=== PATIENT | female | born 1980 | race American Indian/Alaskan Native ===

== ENCOUNTER 2017-06-16 16:27 | Emergency (ER) | payer OTHER ==
[2017-06-16 17:37] LABS: Mean Corpuscular HGB Conc 30 % (30-34); Platelet Count 320 K/mm3 (140-440); Red Blood Count 5.39 M/mm3 (3.65-5.03); White Blood Count 5.9 K/mm3 (4.5-11.0)
[2017-06-16 17:44] LABS: Hematocrit 32.9 % (30.3-42.9); Hemoglobin 9.8 gm/dl (10.1-14.3); Mean Corpuscular Hemoglobin 18 pg (28-32); Mean Corpuscular Volume 61 fl (79-97); Red Cell Distribution Width 25.6 % (13.2-15.2)
[2017-06-16 17:46] LABS: INR 1.15 (0.87-1.13); Partial Thromboplastin Time 27.8 Sec. (24.2-36.6)
[2017-06-16 17:53] LABS: Blood Urea Nitrogen 9 mg/dL (7-17); Calcium 9.3 mg/dL (8.4-10.2); Carbon Dioxide 16 mmol/L (22-30); Glucose 100 mg/dL (65-100)
[2017-06-16 17:54] LABS: Anion Gap 26 mmol/L; Chloride 102.9 mmol/L (98-107); Potassium 3.8 mmol/L (3.6-5.0); Sodium 141 mmol/L (137-145)
--- NOTE | 2017-06-16 18:32 | Cat Scan Report ---
FINAL REPORT PROCEDURE: CT HEAD/BRAIN WO CON TECHNIQUE: Computerized tomography of the head was performed without contrast material. HISTORY: neuro deficits \T\lt; 6hrs or sx present upon awakening COMPARISON: No prior studies are available for comparison. FINDINGS: Visualized portions of the paranasal sinuses and mastoid air cells are clear. No calvarial fracture is seen. Cerebral ventricles are normal in size. Idiopathic calcifications are seen in the basal ganglia. No acute intracranial hemorrhage or mass effect is seen. No CVA is seen. IMPRESSION: No significant abnormality is seen.
[2017-06-16 18:33] LABS: Basophils % (Manual) 0 % (0.0-1.8); Blastocytes % (Manual) 0 %
[2017-06-16 18:34] LABS: Anisocytosis 1+; Elliptocytes 1+; Hypochromasia 2+; Tear Drop Cells 1+
[2017-06-16 18:35] LABS: Diff Status Complete; Platelet Estimate Consistent w Auto
[2017-06-16] MEDS ORDERED: CATAPRES PO ONE (20:25)
[2017-06-16] MEDS ORDERED: APRESOLINE PO ONE (21:39)
--- NOTE | 2017-06-16 22:07 | Emergency Department Report ---
HPI - General Chief Complaint: High BP Time Seen by Provider: 06/16/17 20:05 - HPI HPI: 36-year-old -[place] female, with history of labile blood pressure, come to the ED with blood pressure that has been elevated. She states she got into an argument with her supervising yesterday, and has had problem controlling her blood pressure. She is on hydralazine 25 mg by mouth once a day , clonidine 0.1 mg by mouth at night. Denied any chest pain. No nausea no vomiting mild dizziness. ED Past Medical Hx - Past Medical History Hx Hypertension: Yes Hx Congestive Heart Failure: No (Bordering) Hx Diabetes: No Hx Psychiatric Treatment: Yes (bipolar/depression) Hx Asthma: No Hx COPD: No Additional medical history: iron deficency anemia, Uterine fibroids - Surgical History Past Surgical History?: Yes Additional Surgical History: abd sx x3, most recent abd sx 2007, , L tubal , Bowel obstruction - Social History Smoking Status: Former Smoker Substance Use Type: Alcohol - Medications Home Medications: Home Medications Medication Instructions Recorded Confirmed Last Taken Type cloNIDine [Catapres] 0.1 mg PO QHS 10/07/16 06/16/17 06/15/17 History hydrALAZINE [Apresoline TAB] 50 mg PO TID 10/07/16 06/16/17 06/15/17 History traZODone [Desyrel] 200 mg PO QHS 10/07/16 06/16/17 06/15/17 History ED Review of Systems ROS: Stated complaint: HEAD PAIN/DIZZY Other details as noted in HPI Comment: All other systems reviewed and negative Constitutional: no symptoms reported Neurological: other (denies focal weakness, confusion and it) Physical Exam - Physical Exam Vital Signs: Vital Signs 06/16/17 06/16/17 06/16/17 16:34 20:03 20:42 Temperature 98.4 F 98.5 F Pulse Rate 95 H 77 70 Respiratory 16 18 Rate Blood Pressure 164/129 170/114 Blood Pressure 169/106 [Left] O2 Sat by Pulse 99 100 Oximetry 06/16/17 06/16/17 21:36 21:47 Temperature Pulse Rate 71 74 Respiratory 16 Rate Blood Pressure 167/105 Blood Pressure 157/105 [Left] O2 Sat by Pulse 100 Oximetry Physical Exam: Vital signs reviewed. Gen. alert and oriented 3 in no distress Head atraumatic normocephalic Eyes PERR LA EOMI Chest regular rate and rhythm normal S1-S2 lungs clear bilaterally Abdomen soft nondistended Back no point tenderness paravertebral tenderness Neuro no focal deficit. Psych normal mood. ED Course Vital Signs 06/16/17 06/16/17 06/16/17 16:34 20:03 20:42 Temperature 98.4 F 98.5 F Pulse Rate 95 H 77 70 Respiratory 16 18 Rate Blood Pressure 164/129 170/114 Blood Pressure 169/106 [Left] O2 Sat by Pulse 99 100 Oximetry 06/16/17 06/16/17 21:36 21:47 Temperature Pulse Rate 71 74 Respiratory 16 Rate Blood Pressure 167/105 Blood Pressure 157/105 [Left] O2 Sat by Pulse 100 Oximetry - Reevaluation(s) Reevaluation #1: 06/16/17 22:05 Patient feel much better and wants to go home. Advised to follow up in the morning with PCP. She stated due to early data blood pressure she has been follow up with her primary care doctor every 2 weeks. Feels comfortable going home. ED Medical Decision Making - Lab Data Result diagrams: 06/16/17 17:22 06/16/17 17:22 Critical care attestation.: If time is entered above; I have spent that time in minutes in the direct care of this critically ill patient, excluding procedure time. ED Disposition Clinical Impression: Labile hypertension Disposition: DC-01 TO HOME OR SELFCARE Is pt being admited?: No Does the pt Need Aspirin: No Condition: Stable Instructions: Hypertension (ED) Referrals: GELY RINCON MD [Primary Care Provider] - 3-5 Days
[2017-06-16 22:13] VITALS: BP 144/105
== END 2017-06-16 22:17 | disposition home or self-care (01) ==
LOC: ED 16:27
DX: I10 Essential (primary) hypertension (principal); F31.9 Bipolar disorder, unspecified; Z87.891 Personal history of nicotine dependence
CPT/HCPCS: 36415; 70450; 80048; 84484; 85007; 85025; 85610; 85670; 85730; 93005; 93010

== ENCOUNTER 2017-06-19 07:11 | Outpatient (CLI) | payer OTHER ==
--- NOTE | 2017-06-19 08:57 | Mammography Report ---
BILATERAL MAMMOGRAM: FINDINGS: Baseline mammogram. The breast tissue is heterogeneously dense, which could obscure detection of small masses (approximately 50%-75% glandular). No mass, distortion, suspicious calcification, or skin change is seen. CAD was utilized. IMPRESSION: Negative mammogram. There is no mammographic evidence of malignancy. RECOMMENDATION: Follow-up per ACS guidelines. BI-RADS CATEGORY: 1 = Negative ACR BI-RADS MAMMOGRAPHIC CODES: 0 = Needs additional imaging evaluation; 1 = Negative; 2 = Benign; 3 = Probably benign; 4 = Suspicious; 5 = Malignant; 6 = Known biopsy-proven malignancy COMMENT: 1. Dense breast tissue, i.e., adenosis, fibrocystic changes, etc., may obscure an underlying neoplasm. 2. Approximately 10% of cancers are not detected with mammography. 3. A negative mammography report should not delay biopsy if a clinically suspicious mass is present. COMMENT: Patient follow-up letters are generated in [facility].
== END 2017-06-19 07:12 | disposition home or self-care (01) ==
LOC: MAMMO 07:11
PROVIDERS: ATTEND Obstetrics & Gynecology
DX: Z12.31 Encounter for screening mammogram for malignant neoplasm of breast (principal); I11.0 Hypertensive heart disease with heart failure; I50.9 Heart failure, unspecified; F32.9 Major depressive disorder, single episode, unspecified; D64.9 Anemia, unspecified; Z87.891 Personal history of nicotine dependence
CPT/HCPCS: 77067; G0202